=== PATIENT | male | born 1965 | race Two or more races ===

== ENCOUNTER 2022-01-20 11:03 | Day surgery (SDC) | payer OTHER ==
[~2022-01-20] VITALS: Ht 172.7 cm; Wt 97.1 kg
[2022-01-20] MEDS ORDERED: diphenhydrAMINE 50 MG/ML VIAL ONE (11:49)
[2022-01-20] MEDS ORDERED: fentaNYL citrate 0.05 MG/ML VIAL ONE (11:50)
[2022-01-20] MEDS ORDERED: MIDAZOLAM 2 MG/2 ML VIAL ONE (11:50)
[2022-01-20] MEDS ORDERED: MIDAZOLAM 2 MG/2 ML VIAL IV ONE (12:35)
== END 2022-01-20 13:00 | disposition home or self-care (01) ==
LOC: MDS 11:03 → MMU 11:04 → MDS 13:00
PROVIDERS: ATTEND Internal Medicine Gastroenterology
DX: Z12.11 Encounter for screening for malignant neoplasm of colon (principal); K63.5 Polyp of colon; E11.9 Type 2 diabetes mellitus without complications; Z20.822 Contact with and (suspected) exposure to COVID-19; Z98.890 Other specified postprocedural states; Z79.84 Long term (current) use of oral hypoglycemic drugs; Z98.1 Arthrodesis status
CPT/HCPCS: 45385; 87426; J1200; J2250; J3010; 88305